=== PATIENT | female | born 1945 | race Hispanic/Latino ===

== ENCOUNTER → 2020-08-24 | Outpatient (CLI) | payer OTHER | END | disposition home or self-care (01) | LOC: RAH 15:21 | PROVIDERS: ATTEND Family Medicine | DX: Z12.31 Encounter for screening mammogram for malignant neoplasm of breast (principal) | CPT/HCPCS: 77067 ==

== ENCOUNTER 2024-03-31 08:29 | Emergency (ER) | payer OTHER, MEDICARE ==
[~2024-03-31] VITALS: Ht 162.6 cm; Wt 59.0 kg
[2024-03-31] MEDS: TRIAMCINOLONE ACETONIDE 40 MG/ML 1ML VIAL IM ONE (09:41)
[2024-03-31] MEDS: ORPHENADRINE 60MG/2ML IM ONE (09:42)
[2024-03-31] MEDS ORDERED: NAPR-1196 PO (09:52)
[2024-03-31 10:00] VITALS: BP 133/78; PULSE 78; RESP 18; O2SAT 98
== END 2024-03-31 10:06 | disposition home or self-care (01) ==
LOC: EDH 08:29
DX: M16.0 Bilateral primary osteoarthritis of hip (principal); I10 Essential (primary) hypertension; Z98.890 Other specified postprocedural states
CPT/HCPCS: 99284; 73502; 96372 ×2; J3301; J2360

== ENCOUNTER 2024-05-07 13:55 | Emergency (ER) | payer OTHER, MEDICARE ==
[~2024-05-07 13:55] MED LIST: NAPR-1196 PO
[2024-05-07] MEDS: LIDOCAINE HCL 1% 20 ML VIAL INJ STA (14:22)
[2024-05-07] MEDS: cefTRIAXone 1G VIAL IM ONE (14:22)
[2024-05-07] MEDS: DIPH,PERTUSS(ACELL),TET VAC/PF 0.5 ML VIAL IM ONE (14:23)
[2024-05-07] MEDS ORDERED: CEPH500B PO (14:57)
[2024-05-07 15:08] VITALS: BP 144/68; PULSE 68; RESP 18; TEMP 98.1; O2SAT 98
== END 2024-05-07 15:09 | disposition home or self-care (01) ==
LOC: EDH 13:55
DX: S61.411A Laceration without foreign body of right hand, initial encounter (principal); I10 Essential (primary) hypertension; Z79.899 Other long term (current) drug therapy; Z98.890 Other specified postprocedural states; W22.09XA Striking against other stationary object, initial encounter; Y93.89 Activity, other specified; Y92.89 Other specified places as the place of occurrence of the external cause; Y99.8 Other external cause status
CPT/HCPCS: 99284; 90715; 73130; 96372; 90471; 12004; J0696

== ENCOUNTER 2024-06-04 10:54 | Emergency (ER) | payer MEDICARE ==
[~2024-06-04] VITALS: Ht 152.4 cm; Wt 59.0 kg
[~2024-06-04 10:54] MED LIST changes: +CEPH500B PO
[2024-06-04] MEDS ORDERED: METH4TAB3 PO (12:17)
[2024-06-04 12:19] VITALS: BP 118/70; PULSE 70; RESP 18; TEMP 98.6; O2SAT 99
== END 2024-06-04 12:27 | disposition home or self-care (01) ==
LOC: EDH 10:54
DX: M47.817 Spondylosis without myelopathy or radiculopathy, lumbosacral region (principal); I10 Essential (primary) hypertension; Z79.899 Other long term (current) drug therapy; Z86.73 Personal history of transient ischemic attack (TIA), and cerebral infarction without residual deficits; Z98.890 Other specified postprocedural states
CPT/HCPCS: 72100; 72220